=== PATIENT | female | born 1950 | race African-American/Black ===

== ENCOUNTER → 2017-04-08 | Outpatient (CLI) | payer OTHER ==
[~2017-04-08] MED LIST: ACCURETIC 20-21 EACH PO; APAP650 PO; ASPIR 8181 MG PO; CRESTOR10 MG PO; LOPRESSOR50 PO; POTASSIUM20 PO; QUINU10 PD PO; UNICOMPLEX M TA1 TA1 PO; VITAMIN B-12500 MCG PO; VITAMIN D 5050000 I1 PO
== END ==
LOC: RAD 01:39
DX: Z12.31 Encounter for screening mammogram for malignant neoplasm of breast (principal)